=== PATIENT | male | born 1975 | race Asian ===

== ENCOUNTER 2017-07-01 19:37 | Emergency (ER) | payer MEDICAID ==
[2017-07-01 19:48] VITALS: BP 137/80
--- NOTE | 2017-07-01 19:49 | EDPHY ---
H & P Stated Complaint: c/o sinus congestion inc. drainage Time Seen by Provider: 07/01/17 19:49 HPI/ROS: HPI CHIEF COMPLAINT: Sinus congestion and drainage HISTORY OF PRESENT ILLNESS: 41-year-old male, otherwise healthy, no significant medical history presents emergency room with nasal congestion, sinus congestion sinus pressure, x3 days. Denies any fever. Denies headache or neck pain. Denies ear pain. States that his nose very stuffy and congested. Has had rhinorrhea. Unsure of the color. Past Medical History: No medical history Past Surgical History: No surgical history Social History: Denies drugs alcohol tobacco. Family History: Noncontributory ROS REVIEW OF SYSTEMS: A comprehensive 10 point review of systems is otherwise negative aside from elements mentioned in the history of present illness. Exam Constitutional appears well nontoxic no acute distress triage nursing summary reviewed, vital signs reviewed, awake/alert. Eyes normal conjunctivae and sclera, EOMI, PERRLA. Congestive clear bilaterally. No significant drainage or signs of infection on exam HENT he has intermittent slightly inflamed, no evidence of significant infection exam but does have some anterior maxillary and ethmoid sinus pressure , atraumatic, moist mucus membranes, no epistaxis, neck supple/ no meningismus, no raccoon eyes. Respiratory clear to auscultation bilaterally, normal breath sounds, no respiratory distress, no wheezing. Cardiovascular rate normal, regular rhythm, no murmur, no edema, distal pulses normal. Gastrointestinal soft, non-tender, no rebound, no guarding, normal bowel sounds, no distension, no pulsatile mass. Genitourinary no CVA tenderness. Musculoskeletal no midline vertebral tenderness, full range of motion, no calf swelling, no tenderness of extremities, no meningismus, good pulses, neurovascularly intact. Skin pink, warm, & dry, no rash, skin atraumatic. Neurologic awake, alert and oriented x 3, AAOx3, moves all 4 extremities equally, motor intact, sensory intact, CN II-XII intact, normal cerebellar, normal vision, normal speech. Psychiatric normal mood/affect. Heme/Lymph/Immune no lymphadenopathy. Differential Diagnosis: Includes but is not limited to in a particular order viral infection, acute sinusitis, allergies Medical Decision Making: Plan for this patient will prescribe azithromycin for sinus infection, additionally prescribed Flonase. Return precautions discussed with the patient understands. He appears well nontoxic no acute distress. Source: Patient - Personal History Current Tetanus Diphtheria and Acellular Pertussis (TDAP): Yes - Social History Smoking Status: Never smoked Constitutional: Initial Vital Signs Temperature (C) 37.1 C 07/01/17 19:45 Heart Rate 78 07/01/17 19:45 Respiratory Rate 18 07/01/17 19:45 Blood Pressure 137/80 H 07/01/17 19:45 O2 Sat (%) 97 07/01/17 19:45 O2 Delivery Mode Room Air Allergies/Adverse Reactions: No Known Allergies Allergy (Unverified 12/11/13 12:11) Home Medications: Medication Instructions Recorded Azithromycin [Zithromax] 250 mg PO DAILY #6 tab 07/01/17 Fluticasone Nasal [Flonase Nasal 2 sprays NASAL DAILY #1 mdi 07/01/17 [place] (RX)] Departure - Departure Disposition: Home, Routine, Self-Care Clinical Impression: Sinusitis Qualifiers: Sinusitis location: sphenoidal Chronicity: acute Recurrence: non-recurrent Qualified Code(s): J01.30 - Acute sphenoidal sinusitis, unspecified Condition: Good Instructions: Sinusitis (ED) Additional Instructions: 1. Drink lots of fluids stay well-hydrated 2. Antibiotic as prescribed. 3. Flonase as prescribed. Referrals: [facility] MOORE [Other] - As per Instructions Prescriptions: Azithromycin [Zithromax] 250 mg PO DAILY #6 tab Fluticasone Nasal [Flonase Nasal [place] (RX)] 2 sprays NASAL DAILY #1 mdi
== END 2017-07-01 20:13 | disposition home or self-care (01) ==
LOC: CED 19:37
DX: J01.30 Acute sphenoidal sinusitis, unspecified (principal)